=== PATIENT | male | born 1970 | race Hispanic/Latino ===

== ENCOUNTER 2019-08-08 06:24 | Day surgery (SDC) | payer OTHER ==
[~2019-08-08 06:24] MED LIST: ATOR40TA69 PO; ENAL5TAB PO; FENO160T16 PO; GLIP10TA9 PO; LACT PO; METF-446 PO; MONT10TA26 PO; ONDA4TAB4 PO; PANT40TA25 PO; SODIUM CHLORIDE 0.9% 1000ML 1,000 ML IV ONE; SUCR1TAB2 PO
[2019-08-08 07:56] VITALS: BP 131/84
[2019-08-08 08:05] VITALS: BP 131/84
[2019-08-08] MEDS ORDERED: LACT10SO9 PO (08:12)
[2019-08-08] MEDS ORDERED: PROPOFOL 10 MG/ML 20ML VIAL IV ONE ×2 (08:47)
[2019-08-08 09:15] VITALS: BP 108/72
[2019-08-08 09:20] VITALS: BP 123/70
[2019-08-08 09:25] VITALS: BP 112/64
== END 2019-08-08 09:50 | disposition home or self-care (01) ==
LOC: DAH 06:24 → ENDO 06:24
PROVIDERS: ATTEND Internal Medicine
DX: Z12.11 Encounter for screening for malignant neoplasm of colon (principal); D12.2 Benign neoplasm of ascending colon; D12.4 Benign neoplasm of descending colon; K29.50 Unspecified chronic gastritis without bleeding; B96.81 Helicobacter pylori [H. pylori] as the cause of diseases classified elsewhere; K22.8 Other specified diseases of esophagus; K57.30 Diverticulosis of large intestine without perforation or abscess without bleeding; E11.9 Type 2 diabetes mellitus without complications; I10 Essential (primary) hypertension; E78.5 Hyperlipidemia, unspecified; Z72.89 Other problems related to lifestyle; Z79.84 Long term (current) use of oral hypoglycemic drugs; Z79.899 Other long term (current) drug therapy; Z87.891 Personal history of nicotine dependence; Z82.49 Family history of ischemic heart disease and other diseases of the circulatory system; Z83.3 Family history of diabetes mellitus
CPT/HCPCS: 43239; 45380; 82948 ×2; A4620; J2704 ×2; J7030